=== PATIENT | female | born 1940 | race Caucasian/White ===

== ENCOUNTER 2018-03-16 19:30 | Inpatient (IN) | payer MEDICARE ==
[2018-03-16] MEDS ORDERED: ASPIRIN 81 MG TABLET, CHEWABLE PO ONE (19:31)
[2018-03-16] MEDS ORDERED: NORMAL SALINE 500 ML IV ONE (19:38)
[2018-03-16] MEDS ORDERED: DILTIAZEM HCL INJ 25 MG/5 ML VIAL IV ONE (19:53)
[2018-03-16] MEDS ORDERED: DILTIAZEM HCL/D5W 125 MG/125 ML RTUINJ IV PRN (19:53)
--- NOTE | 2018-03-16 20:00 | ER Document Report ---
ED Cardiac - General Chief Complaint: Palpitations Stated Complaint: RAPID HEART BEAT Time Seen by Provider: 03/16/18 19:38 Notes: The patient is a 76-year-old female, past medical history hypertension, presents with 2 hours of feeling like her heart is racing. EMS was called and she was found to be in new onset A. fib with RVR with heart rates between 170 and 210. She was given 6.25 mg Cardizem 2 IV push and started Cardizem at 10 mg/h with improvement of her heart rate to 110's-120s. Patient denies chest pain, shortness of breath, syncope, nausea, vomiting, fevers, leg swelling, hemoptysis, back pain, blood thinner use, headache or neurologic symptoms. - Related Data Allergies/Adverse Reactions: No Known Drug Allergies Allergy (Verified 03/16/18 20:43) Past Medical History - General Information source: Patient - Social History Smoking Status: Unknown if Ever Smoked Family History: Reviewed & Not Pertinent Review of Systems - Review of Systems Notes: REVIEW OF SYSTEMS: CONSTITUTIONAL: -fevers, -chills EENT: -eye pain, -difficulty swallowing, -nasal congestion CARDIOVASCULAR: -chest pain, -syncope, +palpitations RESPIRATORY: -cough, -SOB GASTROINTESTINAL: -abdominal pain, -nausea, -vomiting, -diarrhea GENITOURINARY: -dysuria, -hematuria MUSCULOSKELETAL: -back pain, -neck pain SKIN: -rash or skin lesions. HEMATOLOGIC: -easy bruising or bleeding. LYMPHATIC: -swollen, enlarged glands. NEUROLOGICAL: -altered mental status or loss of consciousness, -headache, - neurologic symptoms PSYCHIATRIC: -anxiety, -depression. ALL OTHER SYSTEMS REVIEWED AND NEGATIVE. Physical Exam - Vital signs Vitals: Temp Resp BP Pulse Ox 98.6 F 17 161/70 H 98 03/16/18 19:37 03/16/18 19:37 03/16/18 19:37 03/16/18 19:37 - Notes Notes: PHYSICAL EXAMINATION: GENERAL: Well-appearing, well-nourished and in no acute distress. HEAD: Atraumatic, normocephalic. EYES: Pupils equal round and reactive to light, extraocular movements intact, sclera anicteric, conjunctiva are normal. ENT: nares patent, oropharynx clear without exudates. Moist mucous membranes. NECK: Normal range of motion, supple without lymphadenopathy LUNGS: Breath sounds clear to auscultation bilaterally and equal. No wheezes rales or rhonchi. HEART: Tachycardia, irregularly irregular rhythm ABDOMEN: Soft, nontender, normoactive bowel sounds. No guarding, no rebound. No masses appreciated. EXTREMITIES: Normal range of motion, no pitting or edema. No cyanosis. NEUROLOGICAL: Cranial nerves grossly intact. Normal speech, normal gait. Normal sensory and motor exams. PSYCH: Normal mood, normal affect. SKIN: Warm, Dry, normal turgor, no rashes or lesions noted. Course - Re-evaluation Re-evalutation: Pt in new onset A. fib w/ RVR. No history. Diltiazem has helped improve her heart rate to the 80's and her blood pressure is remaining normal. She is asymptomatic, other than feeling intermittent palpitations. Patient's CHAD2- VASC score is 4 and will provide patient with Lovenox. She requires admission for further evaluation and workup of her new onset A. fib RVR and decision about anticoagulation. Her PMD is at [facility]. 03/16/18 21:[address] Zavala (Hospitalist) and she has accepted atient to [facility]. - Vital Signs Vital signs: Temp Pulse Resp BP Pulse Ox 98.6 F 18 134/73 H 98 03/16/18 19:37 03/16/18 20:35 03/16/18 20:35 03/16/18 20:41 - Laboratory Result Diagrams: 03/16/18 20:00 03/16/18 20:00 - Diagnostic Test Radiology reviewed: Image reviewed, Reports reviewed Radiology results interpreted by me: CXR: NAD - EKG Interpretation by Me EKG shows normal: QRS Complexes Rate: Tachycardia Rhythm: A.Fib When compared to previous EKG there are: Previous EKG unavailable Additional EKG results interpreted by me: A fib w/ RVR, no STEMI Critical Care Note - Critical Care Note Total time excluding time spent on procedures (mins): 45 Discharge - Discharge Clinical Impression: Rapid atrial fibrillation Condition: Stable Disposition: ADMITTED INPATIENT Admitting Provider: Hospitalist - [facility] Unit Admitted: [facility] Referrals: TRINIDAD CERON MD [Primary Care Provider] - Follow up as needed
[2018-03-16 20:06] LABS: ABSOLUTE BASOPHILS # (AUTO) 0.1 10^3/uL (0.0-0.2); ABSOLUTE EOSINOPHILS # (AUTO) 0.2 10^3/uL (0.0-0.6); ABSOLUTE LYMPHOCYTES (AUTO) 2.4 10^3/uL (0.5-4.7); ABSOLUTE MONOCYTES (AUTO) 0.6 10^3/uL (0.1-1.4); ABSOLUTE NEUT (AUTO) 6.3 10^3/uL (1.7-8.2); BASOPHILS % (AUTO) 0.9 % (0-2); EOSINOPHILS % (AUTO) 2.6 % (0-6); HEMATOCRIT 41.4 % (36.0-47.0); HEMOGLOBIN 14.2 g/dL (12.0-15.5); LYMPHOCYTES % (AUTO) 25.2 % (13-45); MEAN CORPUSCULAR HEMOGLOBIN 31.4 pg (27.0-33.4); MEAN CORPUSCULAR HGB CONC 34.2 g/dL (32.0-36.0); MEAN CORPUSCULAR VOLUME 92 fl (80-97); MONOCYTES % (AUTO) 6.3 % (3-13); PLATELET COUNT 190 10^3/uL (150-450); RED BLOOD COUNT 4.51 10^6/uL (3.72-5.28); RED CELL DISTRIBUTION WIDTH 12.9 % (11.5-14.0); TOTAL CELLS COUNTED % (AUTO) 100 %; WHITE BLOOD COUNT 9.6 10^3/uL (4.0-10.5)
--- NOTE | 2018-03-16 20:12 | RADIOLOGY REPORT (SQ) ---
EXAM DESCRIPTION: CHEST SINGLE VIEW COMPLETED DATE/TIME: 03/16/2018 7:50 pm REASON FOR STUDY: cp COMPARISON: None. EXAM PARAMETERS: NUMBER OF VIEWS: One view. TECHNIQUE: Single frontal radiographic view of the chest acquired. RADIATION DOSE: NA LIMITATIONS: None. FINDINGS: LUNGS AND PLEURA: The lungs are hyperexpanded. There is no infiltrate or effusion. There is no mass appear MEDIASTINUM AND HILAR STRUCTURES: No masses. Contour normal. HEART AND VASCULAR STRUCTURES: Heart normal in size. Normal vasculature. BONES: No acute findings. HARDWARE: None in the chest. OTHER: No other significant finding. IMPRESSION: Chronic lung changes with no acute cardiopulmonary disease. TECHNICAL DOCUMENTATION: JOB ID: [id number]- All Rights Reserved Reading location - IP/workstation name: [email or web address]
[2018-03-16 20:20] LABS: ALANINE AMINOTRANSFERASE 29 U/L (9-52); ALBUMIN 4.3 g/dL (3.5-5.0); ALKALINE PHOSPHATASE 64 U/L (38-126); ANION GAP 15 (5-19); ASPARTATE AMINO TRANSFERASE 28 U/L (14-36); BILIRUBIN,DIRECT 0.3 mg/dL (0.0-0.4); BILIRUBIN,TOTAL 0.7 mg/dL (0.2-1.3); BLOOD UREA NITROGEN 20 mg/dL (7-20); CALCIUM 9.7 mg/dL (8.4-10.2); CARBON DIOXIDE 22 mmol/L (22-30); CHLORIDE 105 mmol/L (98-107); CREATINE KINASE 97 U/L (30-135); GLUCOSE 108 mg/dL (75-110); POTASSIUM 4.7 mmol/L (3.6-5.0); SODIUM 141.5 mmol/L (137-145)
[2018-03-16 20:31] LABS: CREATINE KINASE MB 1.77 ng/mL (<4.55)
[2018-03-16 20:33] LABS: TROPONIN I < 0.012 ng/mL
[2018-03-16 21:01] LABS: FREE T3 3.85 pg/mL (2.77-5.27); FREE T4 (FREE THYROXINE) 1.28 ng/dL (0.78-2.19)
[2018-03-16 21:15] LABS: THYROID STIMULATING HORMONE 3.11 uIU/mL (0.47-4.68)
[2018-03-16] MEDS: ENOXAPARIN SODIUM INJ 60 MG/0.6 ML DISP.SYRIN SUBCUT SCH (22:21)
[2018-03-16] MEDS ORDERED: NORMAL SALINE 1000 ML 1,000 ML IV PRN (22:26)
[2018-03-16] MEDS ORDERED: PROMETHAZINE HCL INJ 25 MG/1 ML VIAL IV PRN (22:26)
[2018-03-16] MEDS ORDERED: ALBUTEROL SULFATE 0.083% NEB 2.5 MG/3 ML AMPUL NEB PRN (22:26)
[2018-03-16] MEDS ORDERED: ACETAMINOPHEN 325 MG TABLET PO PRN (22:26)
--- NOTE | 2018-03-16 22:38 | EKG REPORT ---
SEVERITY:- ABNORMAL ECG - ATRIAL FIBRILLATION, V-RATE 63-116 : Confirmed by: Tamir Ortega 16-Mar-2018 22:37:54
--- NOTE | 2018-03-16 22:39 | EKG REPORT ---
SEVERITY:- ABNORMAL ECG - ATRIAL FIBRILLATION NONSPECIFIC REPOL ABNORMALITY, DIFFUSE LEADS, ISCHEMIA VS LVH : Confirmed by: Tamir Ortega 16-Mar-2018 22:38:37
--- NOTE | 2018-03-17 02:00 | PDOC H&P ---
History of Present Illness Admission Date/PCP: TRINIDAD CERON MD Patient complains of: Palpitations for an hour and a half. SVTs with HR = 170 210 prior to admission. History of Present Illness: KENDELL VU is a 77 year old female with history of valvular disease was admitted with above-mentioned complaint. According to the patient, she started having palpitations while she was gardening. The episode lasted about an hour and a half before she decided to call EMS. She denied any chest pain, shortness of breath, syncope or any leg swelling. She, however, felt some lightheadedness/dizziness but no focal weakness or numbness. She also denied any fever, chills, abdominal pain, diarrhea or constipation or any urinary symptoms. She never had any similar episodes in the past. Per ED note, the patient's heart rate was reported by EMS to be 170-210. She received 6.25 mg IV Cardizem 2 and was started on Cardizem drip at 10 mg/h with improvement of her heart rate down to 110- 120s. In the ED, her temperature was 98.6, heart rate 113, respiratory rate 17, blood pressure 161/70 with oxygen saturation of 98% on room air. Her WBC was 9.6 and her hemoglobin was 14.2. Her potassium was 4.7. Magnesium pending. Her initial troponin was less than 0.012. ProBNP and TSH pending. A CXR was done which showed hyperinflated lungs. She received therapeutic Lovenox x1. She currently converted to sinus rhythm on Cardizem drip @ 5 mg/hr. Past Medical History Cardiac Medical History: Reports: Other - leaky valves per patient. Past Surgical History Past Surgical History: Reports: Orthopedic Surgery - R knee replacement. B/L feet sxs. Social History Smoking Status: Former Smoker Cigarettes Packs Per Day: 0 - She used to smoke less than a pack a day for about 40 years. She quit more than 20 years ago. Frequency of Alcohol Use: Occasional - wine and whiskey occasionally. Hx Recreational Drug Use: No - Advance Directive Resuscitation Status: Full Code Family History Parental Family History Reviewed: Yes - Mother: Diabetes. Children Family History Reviewed: No Sibling(s) Family History Reviewed.: Yes Medication/Allergy Allergies/Adverse Reactions: No Known Drug Allergies Allergy (Verified 03/16/18 20:43) Review of Systems ROS unobtainable: Other - Pertinent positives and negatives as per HPI. Physical Exam Vital Signs: Temp Pulse Resp BP Pulse Ox 98.6 F 18 134/73 H 98 03/16/18 19:37 03/16/18 20:35 03/16/18 20:35 03/16/18 20:41 Intake & Output 03/15/18 03/16/18 03/17/18 06:59 06:59 06:59 Weight 50 kg General appearance: PRESENT: no acute distress, well-developed Head exam: PRESENT: atraumatic, normocephalic Eye exam: PRESENT: PERRLA Mouth exam: PRESENT: moist, neck supple Neck exam: PRESENT: full ROM. ABSENT: JVD Respiratory exam: PRESENT: crackles, decreased breath sounds. ABSENT: rhonchi, wheezes Cardiovascular exam: PRESENT: RRR, +S1, +S2. ABSENT: systolic murmur Pulses: PRESENT: normal dorsalis pedis pul GI/Abdominal exam: PRESENT: normal bowel sounds, soft. ABSENT: distended, guarding, rebound, tenderness Rectal exam: PRESENT: deferred Extremities exam: ABSENT: pedal edema Musculoskeletal exam: PRESENT: full ROM Neurological exam: PRESENT: alert, altered, awake. ABSENT: motor sensory deficit Skin exam: PRESENT: dry, warm. ABSENT: erythema, rash Results Laboratory Results: 03/16/18 20:00 03/16/18 20:00 03/16/18 03/16/18 03/16/18 20:00 20:00 20:00 WBC 9.6 RBC 4.51 Hgb 14.2 Hct 41.4 MCV 92 MCH 31.4 MCHC 34.2 RDW 12.9 Plt Count 190 Seg Neutrophils % 65.0 Lymphocytes % 25.2 Monocytes % 6.3 Eosinophils % 2.6 Basophils % 0.9 Absolute Neutrophils 6.3 Absolute Lymphocytes 2.4 Absolute Monocytes 0.6 Absolute Eosinophils 0.2 Absolute Basophils 0.1 Sodium 141.5 Potassium 4.7 Chloride 105 Carbon Dioxide 22 Anion Gap 15 BUN 20 Creatinine 0.71 Est GFR ( Amer) > 60 Est GFR (Non-Af Amer) > 60 Glucose 108 Calcium 9.7 Total Bilirubin 0.7 AST 28 ALT 29 Alkaline Phosphatase 64 Total Protein 7.0 Albumin 4.3 TSH 3.11 Free T4 1.28 Free T3 pg/mL 3.85 03/16/18 03/16/18 20:00 20:00 Creatine Kinase 97 CK-MB (CK-2) 1.77 Troponin I < 0.012 EKG Comments: 12 lead EKG: A. fib, ventricular rate 120, axis -60, QTC prolongation, poor R- wave propagation. Repeat 12 lead EKG, A. fib, ventricular rate 90, axis -55, no acute changes. No previous EKG to compare. Impressions: Chest X-Ray 03/16/18 19:31 IMPRESSION: Chronic lung changes with no acute cardiopulmonary disease. Assessment & Plan - Diagnosis (1) Atrial fibrillation with RVR Is this a current diagnosis for this admission?: Yes Plan: New and/or paroxysmal. [id number] Vasc score is at least 3. Will continue to cycle cardiac enzymes and check proBNP, d-dimer and follow-up TSH and echocardiogram. Will also check electrolytes and replace as needed. Will continue Cardizem drip for now and therapeutic Lovenox BID. Will consult case management regarding starting Eliquis vs Coumadin as outpatient depending on cost. (2) Elevated blood pressure reading Is this a current diagnosis for this admission?: Yes Plan: I am not sure if the patient has a hypertension diagnosis but she said that she takes " a small pill for her heart." She is currently on Cardizem drip which we will continue. (3) Valvular disease Is this a current diagnosis for this admission?: Yes Plan: per patient. Will follow-up echocardiogram and adjust medications as needed. - Time Time Spent: 50 to 70 Minutes - Inpatient Certification Based on my medical assessment, after consideration of the patient's comorbidities, presenting symptoms, or acuity I expect that the services needed warrant INPATIENT care.: Yes I certify that my determination is in accordance with my understanding of Medicare's requirements for reasonable and necessary INPATIENT services [42 CFR 412.3e].: Yes
[2018-03-17 05:20] LABS: HEMATOCRIT 39.1 % (36.0-47.0); HEMOGLOBIN 13.3 g/dL (12.0-15.5); MEAN CORPUSCULAR HEMOGLOBIN 31.4 pg (27.0-33.4); MEAN CORPUSCULAR HGB CONC 34.1 g/dL (32.0-36.0); MEAN CORPUSCULAR VOLUME 92 fl (80-97); PLATELET COUNT 182 10^3/uL (150-450); RED BLOOD COUNT 4.24 10^6/uL (3.72-5.28); RED CELL DISTRIBUTION WIDTH 12.8 % (11.5-14.0); WHITE BLOOD COUNT 7.2 10^3/uL (4.0-10.5)
[2018-03-17 05:30] LABS: ANION GAP 12 (5-19); BLOOD UREA NITROGEN 21 mg/dL (7-20); CALCIUM 9.2 mg/dL (8.4-10.2); CARBON DIOXIDE 24 mmol/L (22-30); CHLORIDE 109 mmol/L (98-107); GLUCOSE 80 mg/dL (75-110); POTASSIUM 4.3 mmol/L (3.6-5.0); SODIUM 144.5 mmol/L (137-145)
[2018-03-17] MEDS: DILTIAZEM HCL 180 MG CAPSULE.CR PO SCH (09:33)
[2018-03-17] MEDS: ENOXAPARIN SODIUM INJ 60 MG/0.6 ML DISP.SYRIN SUBCUT SCH (09:33)
--- NOTE | 2018-03-17 16:14 | PDOC PROGRESS REPORT ---
Subjective Progress Note for:: 03/17/18 Subjective:: KENDELL VU is a 77 year old female with a history of valvular disease was admitted 03/16/2018 with A. fib with RVR. Her rate is currently controlled with p.o. Cardizem. Continuous telemetry strips demonstrate the patient's rhythm will flip flop between NSR and AFIB. The patient was seen this morning on rounds. She is resting comfortably in bed eating her breakfast. The patient has no complaints whatsoever. She denies a history of AFIB or ever having to see a doctor for a heart arrhythmia. Reason For Visit: A FIB WITH RVR. Physical Exam Vital Signs: Temp Pulse Resp BP Pulse Ox 97.9 F 67 16 107/44 L 100 03/17/18 12:35 03/17/18 14:00 03/17/18 12:35 03/17/18 12:35 03/17/18 12:35 Intake & Output 03/16/18 03/17/18 03/18/18 06:59 06:59 06:59 Intake Total 78 355 Balance 78 355 Weight 50 kg General appearance: PRESENT: no acute distress, well-developed, well-nourished Head exam: PRESENT: atraumatic, normocephalic Eye exam: PRESENT: conjunctiva pink, EOMI, PERRLA. ABSENT: scleral icterus Ear exam: PRESENT: normal external ear exam Mouth exam: PRESENT: moist, tongue midline Neck exam: ABSENT: carotid bruit, JVD, lymphadenopathy, thyromegaly Respiratory exam: PRESENT: clear to auscultation jennifer, symmetrical, unlabored. ABSENT: rales, rhonchi, wheezes Cardiovascular exam: PRESENT: irregular rhythm, RRR. ABSENT: diastolic murmur, rubs, systolic murmur Pulses: PRESENT: normal radial pulses, normal dorsalis pedis pul Vascular exam: PRESENT: normal capillary refill GI/Abdominal exam: PRESENT: normal bowel sounds, soft. ABSENT: distended, tenderness Rectal exam: PRESENT: deferred Extremities exam: PRESENT: full ROM Musculoskeletal exam: PRESENT: ambulatory, full ROM Neurological exam: PRESENT: alert, awake, oriented to person, oriented to place , oriented to time, oriented to situation Psychiatric exam: PRESENT: appropriate affect, normal mood Skin exam: PRESENT: dry, intact, warm. ABSENT: cyanosis, rash Results Laboratory Results: 03/17/18 04:24 03/17/18 04:24 18 03/17/18 04:24 04:24 WBC 7.2 RBC 4.24 Hgb 13.3 Hct 39.1 MCV 92 MCH 31.4 MCHC 34.1 RDW 12.8 Plt Count 182 Sodium 144.5 Potassium 4.3 Chloride 109 H Carbon Dioxide 24 Anion Gap 12 BUN 21 H Creatinine 0.75 Est GFR ( Amer) > 60 Est GFR (Non-Af Amer) > 60 Glucose 80 Calcium 9.2 Magnesium 2.0 03/16/18 23:20 Troponin I 0.027 Impressions: Chest X-Ray 03/16/18 19:31 IMPRESSION: Chronic lung changes with no acute cardiopulmonary disease. Status: Imported from PACS Assessment & Plan - Diagnosis (1) Rapid atrial fibrillation Is this a current diagnosis for this admission?: Yes Plan: New onset rapid A. fib. Patient denies history of arrhythmia. Initially on Cardizem drip, transitioned to oral Cardizem today. Rate is currently controlled, however, rhythm alternates between atrial fibrillation and normal sinus rhythm MARIANNA-VASC score 3, continue SQ therapeutic Lovenox twice daily We will need to make determination regarding anticoagulation post discharge Echocardiogram pending Troponin<0.012 no longer trending Cardiology consulted, appreciate their recommendations (2) Valvular disease Is this a current diagnosis for this admission?: Yes Plan: Patient reports a history of valvular disease, however she is unsure which valves Echocardiogram pending, adjust medications as needed - Time Time Spent with patient: 15-24 minutes Medications reviewed and adjusted accordingly: Yes Anticipated discharge: Home Within: within 48 hours - Inpatient Certification Based on my medical assessment, after consideration of the patient's comorbidities, presenting symptoms, or acuity I expect that the services needed warrant INPATIENT care.: Yes I certify that my determination is in accordance with my understanding of Medicare's requirements for reasonable and necessary INPATIENT services [42 CFR 412.3e].: Yes Medical Necessity: Risk of Complication if Not Cared For in Hospital - Plan Summary Plan Summary: Ultimately, the plan is to discharge the patient home with close follow-up to tack cutter. She will need to continue p.o. Cardizem post discharge. Additionally, her MARIANNA-VASC score is 3 therefore she will require postdischarge anticoagulation. Appreciate cardiology recommendations.
--- NOTE | 2018-03-17 20:03 | XCELERA REPORT ---
[address] [address] Transthoracic Echocardiogram Report Name: KENDELL VU Age: 77 yrs Gender: Female : 1940 Patient Status: Inpatient Patient Location: [address] [place] [address] Study Date: 03/17/2018 02:17 PM Height: 59 in Weight: 110 lb BSA: 1.4 m2 Procedure: A complete two-dimensional transthoracic echocardiogram was performed (2D, M-mode, spectral and color flow Doppler). The study was technically adequate with some images being suboptimal in quality. Reason For Study: new onset afib with RVR. Ordering Physician: DIEGO PERALTA Performed By: Ann Marie Nicolas Interpretation Summary Left ventricular systolic function is borderline reduced. The Ejection Fraction estimate is 50-55% There is borderline concentric left ventricular hypertrophy. The left ventricle is grossly normal size. LV diastolic function could not be adequately assessed. There is borderline global hypokinesis of the left ventricle. The right ventricular systolic function is normal. The left atrial size is normal. The right atrium is normal in size There is a mild to moderate amount of mitral regurgitation There is no mitral valve stenosis. There is a mild to moderate amount of aortic regurgitation There is no aortic valve stenosis There is a trace to mild amount of tricuspid regurgitation Right ventricular systolic pressure is at the upper limits of normal The aortic root is not well visualized but is probably normal size. The inferior vena cava was not well visualized There is no pericardial effusion. MMode/2D Measurements & Calculations RVDd: 1.2 cm LVIDd: 5.0 cm FS: 27.8 % Ao root diam: 2.8 cm IVSd: 0.92 cm LVIDs: 3.6 cm EDV(Teich): 117.8 ml LVPWd: 0.85 cm ESV(Teich): 54.7 ml Ao root area: 6.1 cm2 EF(Teich): 53.6 % Doppler Measurements & Calculations MV E max naomi: MV dec slope: Ao V2 max: AI max naomi: 89.4 cm/sec 146.8 cm/sec 425.0 cm/sec MV A max naomi: 460.6 cm/sec2 Ao max PG: AI max P.1 cm/sec MV dec time: 8.6 mmHg 72.2 mmHg MV E/A: 1.6 0.19 sec AI dec slope: 252.0 cm/sec2 AI P1/2t: 493.9 msec LV V1 max PG: PA V2 max: PI end-d naomi: TR max naomi: 4.1 mmHg 54.5 cm/sec 104.3 cm/sec 246.7 cm/sec LV V1 max: PA max P.2 mmHg TR max P.0 cm/sec 24.4 mmHg Left Ventricle The left ventricle is grossly normal size. There is borderline concentric left ventricular hypertrophy. Left ventricular systolic function is borderline reduced. The Ejection Fraction estimate is 50-55%. LV diastolic function could not be adequately assessed. There is borderline global hypokinesis of the left ventricle. Right Ventricle The right ventricle is grossly normal size. There is normal right ventricular wall thickness. The right ventricular systolic function is normal. Atria The right atrium is normal in size. The left atrial size is normal. Interarterial septum not well visualized and not well dopplered. Cannot comment on ASD/PFO presence. Mitral Valve The mitral valve leaflets are sclerotic and show some degree of functional abnormality. There is no mitral valve stenosis. There is a mild to moderate amount of mitral regurgitation. Aortic Valve The aortic valve is grossly normal. There is no aortic valve stenosis. There is a mild to moderate amount of aortic regurgitation. Tricuspid Valve The tricuspid valve is not well visualized, but is grossly normal. There is no tricuspid stenosis. There is a trace to mild amount of tricuspid regurgitation. Right ventricular systolic pressure is at the upper limits of normal. Pulmonic Valve The pulmonic valve is not well visualized. Great Vessels The aortic root is not well visualized but is probably normal size. The inferior vena cava was not well visualized. Effusions There is no pericardial effusion. : DIEGO PERALTA > Tamir Ortega
--- NOTE | 2018-03-17 20:33 | Progress Note ---
Provider Note Provider Note: Patient was seen in the morning. She had converted to sinus rhythm. Patient has new onset atrial fibrillation. Patient does have some minor ST-T wave changes. Patient has been recommended chronic anticoagulation. Will schedule patient for a 2D echocardiogram. This was pending at the time when this patient was seen. Will also schedule patient for a nuclear stress test. Patient is agreeable.
[2018-03-17] MEDS ORDERED: NORMAL SALINE 1000 ML 1,000 ML IV PRN (20:41)
[2018-03-17] MEDS ORDERED: PROMETHAZINE HCL INJ 25 MG/1 ML VIAL IV PRN (20:47)
[2018-03-17] MEDS ORDERED: ALBUTEROL SULFATE 0.083% NEB 2.5 MG/3 ML AMPUL NEB PRN (21:00)
[2018-03-17] MEDS ORDERED: ENOXAPARIN SODIUM INJ 60 MG/0.6 ML DISP.SYRIN SUBCUT SCH ×2 (22:00)
--- NOTE | 2018-03-17 23:17 | EKG REPORT ---
SEVERITY:- ABNORMAL ECG - SINUS RHYTHM NONSPECIFIC T ABNORMALITIES, DIFFUSE LEADS : Confirmed by: Tamir Ortega 17-Mar-2018 23:16:52
[2018-03-18 05:16] LABS: HEMATOCRIT 38.2 % (36.0-47.0); HEMOGLOBIN 13.1 g/dL (12.0-15.5); MEAN CORPUSCULAR HEMOGLOBIN 31.7 pg (27.0-33.4); MEAN CORPUSCULAR HGB CONC 34.4 g/dL (32.0-36.0); MEAN CORPUSCULAR VOLUME 92 fl (80-97); PLATELET COUNT 175 10^3/uL (150-450); RED BLOOD COUNT 4.14 10^6/uL (3.72-5.28); RED CELL DISTRIBUTION WIDTH 13.2 % (11.5-14.0); WHITE BLOOD COUNT 6.5 10^3/uL (4.0-10.5)
[2018-03-18 08:02] LABS: APPEARANCE,URINE CLEAR; BILIRUBIN,URINE NEGATIVE (NEGATIVE); COLOR,URINE STRAW; GLUCOSE, URINE NEGATIVE (NEGATIVE); KETONES,URINE NEGATIVE (NEGATIVE); LEUKOCYTE ESTERASE,URINE NEGATIVE (NEGATIVE); NITRITE,URINE NEGATIVE (NEGATIVE); PROTEIN,URINE NEGATIVE (NEGATIVE); URINE SPECIFIC GRAVITY 1.006; UROBILINOGEN,URINE NEGATIVE mg/dL (<2.0)
[2018-03-18] MEDS: DILTIAZEM HCL 180 MG CAPSULE.CR PO SCH (10:27)
[2018-03-18] MEDS ORDERED: AMINOPHYLLINE INJ/PF 250 MG/10 ML SDV IV ONE (10:53)
[2018-03-18] MEDS ORDERED: REGADENOSON INJ 0.4 MG/5 ML DISP.SYRIN IV ONE (10:53)
[2018-03-18 12:06] VITALS: BP 107/82
--- NOTE | 2018-03-18 12:33 | DRAGON STRESS TEST REPORT ---
INTRAVENOUS LEXISCAN CARDIOLITE STRESS TEST USING SINGLE PHOTON EMMISION COMPUTERIZED TOMOGRAPHIC. DATE OF PROCEDURE: March 18, 2018, INDICATION : Atrial fibrillation, abnormal EKG CARDIAC RISK FACTORS: Atrial fibrillation RESTING EKG: Sinus rhythm, minor nonspecific ST-T wave changes noted STRESS EKG: No significant ST segment changes noted with LexiScan bolus REASON FOR TERMINATION: Protocol. PROCEDURE REPORT: Baseline heart rate 76 beats per minute with blood pressure of 125/51. Patient had no significant complaints. Patient was bolused with Lexiscan 0.4 mg intravenously followed by saline bolus. Heart rate at 2 minutes post bolus 115 with a blood pressure of 153/39. 3 minutes post bolus heart rate 101 with blood pressure of 145/38. No significant EKG changes were noted. Patient had no significant complaints during the procedure or postprocedure. Patient injected with Aminophyllin 75 mg at 3 minutes or later after Lexiscan bolus. CONCLUSIONS: Normal EKG and hemodynamic response to IV LexiScan. NUCLEAR DATA: At rest the patient was given 9.29 millicuries of technetium 99 sestamibi injected intravenously. As per protocol rest gated SPECT images were obtained. On day of stress test, the patient was given intravenous LexiScan at a dose of 0.4 mg in 5 mL intravenously, followed by flush with normal saline. Subsequently the stress dose of 32.8 millicuries of technetium 99 sestamibi was injected intravenously. As per protocol stress gated images were obtained. NUCLEAR INTERPRETATION: Both raw and processed data were used for interpretation. Visual, qualitative, computer-generated quantitative data was used. There was good myocardial uptake of technetium compound. Motion artifact and soft tissue attenuations were noted. Increased visceral uptake was noted. Mild decreased uptake noted in the inferior wall in the stress images as compared to rest images and felt to be related to diaphragmatic attenuation and subtraction artifact from visceral uptake. No corresponding regional wall motion abnormalities. Therefore no definitive areas of transient perfusion defect noted, No definitive areas of fixed perfusion defect or scars noted. EKG gated imaging showed LV EF at 57 %, rest and stress gated EF similar visually. T. I D. ratio was 1.22. Lung heart ratio noted to be within normal limits 0.36. No significant extracardiac and abnormal radiotracer activities were noted. RV free wall uptake was noted to be WNL. IMPRESSION: Also refer to comments under nuclear interpretation. Also test results needs to be interpreted in the context of pretest probability. 1. No definitive areas of transient perfusion defect noted. 2. There is no definitive scintigraphic evidence of myocardial infarction/scar. 3. EKG gated imaging shows left ventricular ejection fraction of approx. 57 %. 4. Clinical correlation requested as occasionally single vessel disease or balanced ischemia could be missed. In approximately 10% of the cases Lexiscan may not cause adequate vasodilatory stress. RECOMMENDATIONS: Aggressive risk factor modification and medical management. Further evaluation may be needed if continued symptoms or other high risk indicators are noted on clinical evaluation. Close cardiology follow-up is also recommended. Clinical correlation with echocardiogram derived ejection fraction. Inability to exercise by itself can lead to increased cardiovascular event risks. Consider cardiology consultation and or follow-up if clinically indicated. I am available for cardiology evaluation and consultation if requested by the dealer sales manager, unless patient already has a cork mixer. JONE
--- NOTE | 2018-03-18 13:24 | PDOC PROGRESS REPORT ---
Subjective Progress Note for:: 03/18/18 Subjective:: Patient seems to be doing better with gradual improvement. Pt is denying any chest arm or neck discomfort. Patient denying any PND, orthopnea. Patient denied any sustained palpitations, dizziness, syncope, near syncope. Patient denying any fever chills. Patient denying any other significant discomfort. Patient is maintaining sinus rhythm. Nuclear stress test risk benefits were discussed. Review of systems: Rest review of systems negative. Medications: Medications have been reviewed. Reason For Visit: A FIB WITH RVR. Physical Exam Vital Signs: Temp Pulse Resp BP Pulse Ox 97.4 F 73 17 107/82 100 03/18/18 11:30 03/18/18 11:30 03/18/18 11:30 03/18/18 11:30 03/18/18 11:30 Intake & Output 03/17/18 03/18/18 03/19/18 06:59 06:59 06:59 Intake Total 78 2442 900 Output Total 1000 Balance 78 2442 -100 Weight 50 kg Exam: GENERAL: well-nourished and in no acute distress. Alert and oriented x3 HEAD: Atraumatic, normocephalic. EYES: Pupils equal round and reactive to light, extraocular movements intact, sclera anicteric, conjunctiva are normal. ENT: TMs normal, nares patent, oropharynx clear without exudates. Moist mucous membranes. No oral ulcerations or bleeding gums noted NECK: supple without lymphadenopathy. Trachea is central. No cervical or axillary lymphadenopathy noted. Carotids are 2+, JVD WNL LUNGS: Respiration seems nonlabored, no significant accessory muscle action noted. Breath sounds clear to auscultation bilaterally and equal noted. No wheezes rales or rhonchi noted. No significant dullness noted on percussion. CHEST: Palpation of the chest wall shows no significant chest wall tenderness. HEART: [employer], No PSH, 1/6 JOEL aortic area, 1/6 horn systolic murmur mitral area, no rubs, no gallops. ABDOMEN: Soft, no significant tenderness appreciated, normoactive bowel sounds. No guarding, no rebound. No rigidity noted . No masses appreciated. EXTREMITIES: Pedal pulses are 1-2+, no calf tenderness noted. No clubbing or cyanosis. negative pedal edema noted NEUROLOGICAL: Focused neurological exam showed no significant neurologic deficit. Normal speech, no focal weakness appreciated. PSYCH: Normal mood, normal affect. Judgment and insight within normal limits. SKIN: No significant ecchymosis, skin is noted to be warm. MUSCULOSKELETAL EXAM: No significant acute joint swelling noted. Results Laboratory Results: 03/18/18 04:49 03/17/18 04:24 03/18/18 03/18/18 03/18/18 04:49 07:45 11:30 WBC 6.5 RBC 4.14 Hgb 13.1 Hct 38.2 MCV 92 MCH 31.7 MCHC 34.4 RDW 13.2 Plt Count 175 Urine Color STRAW Urine Appearance CLEAR Urine pH 6.0 Ur Specific [place] 1.006 Urine Protein NEGATIVE Urine Glucose (UA) NEGATIVE Urine Ketones NEGATIVE Urine Blood SMALL H Urine Nitrite NEGATIVE Ur Leukocyte Esterase NEGATIVE Urine WBC (Auto) 1 Urine RBC (Auto) 1 Stool Occult Blood NEGATIVE 03/16/18 23:20 Troponin I 0.027 EKG Comments: Telemetry strips shows sinus rhythm without any sustained tachycardia or bradycardia. Impressions: Chest X-Ray 03/16/18 19:31 IMPRESSION: Chronic lung changes with no acute cardiopulmonary disease. Assessment & Plan - Diagnosis (1) Atrial fibrillation with RVR Is this a current diagnosis for this admission?: Yes (2) Elevated blood pressure reading Is this a current diagnosis for this admission?: Yes (3) Valvular disease Is this a current diagnosis for this admission?: Yes - Notes Notes: Atrial fibrillation with RVR: Patient has converted spontaneously to sinus rhythm. So far has maintained sinus rhythm. Recommend rate control with Cardizem/beta-brenda. Patient can follow-up with me. Might benefit from a event monitor as an outpatient. Patient is less than 60 kg in weight and is 77 , adequate dose for chronic anticoagulation will be Eliquis 2.5 mg p.o. twice daily. Elevated blood pressure reading: Currently blood pressure is well controlled. Valvular heart disease: Patient gives a history of this. 2D echocardiogram shows mild to moderate mitral regurgitation, mild to moderate aortic incompetence. LVEF at lower limit of normal to borderline reduced. Nuclear stress test results were reviewed with the patient. No definitive areas of pharmacologic stress-induced ischemia noted or fixed defect noted. EKG gated imaging shows normal LVEF. - Time Time with patient: Greater than 35 minutes - Patient was seen multiple times. Total time exceeds 40 minutes. In the morning nuclear stress test procedure, risks benefits, alternatives were discussed. Patient seen during the stress test. Patient also seen after stress test when results were discussed with the patient in detail. Patient's questions were answered. Nuclear stress test results were discussed with the patient. Patient was informed that no definitive evidence of pharmacologic stress-induced ischemia noted. No definite fixed defects were noted. Patient informed that occasionally significant single vessel disease or balanced ischemia could be missed. However based on the current study results, would recommend aggressive risk factor modification and medical therapy. It may also be worthwhile to consider evaluation or empiric management of other causes of chest pain. Should no other cause be found and if persistent in having chest pain, then cardiac catheterization should be considered. Right now, recommendations are for aggressive risk factor modification and medical management. CODE STATUS was discussed, patient remains full code. Surrogate decision-maker patient's son. Multiple medical problems were addressed. Patient informed that she can follow- up with me on discharge. Medications reviewed and adjusted accordingly: Yes
[2018-03-18] MEDS ORDERED: APIXABAN 2.5 MG TABLET PO SCH (18:00)
[2018-03-18] MEDS ORDERED: ENOXAPARIN SODIUM INJ 60 MG/0.6 ML DISP.SYRIN SUBCUT SCH (22:00)
--- NOTE | 2018-03-19 17:34 | PDOC CONSULTATION ---
Consultation Consult Date: 03/17/18 Attending physician:: YVONNE GARNER Consult reason:: Atrial fibrillation History of Present Illness Admission Date/PCP: 03/16/18 22:26 TRINIDAD CERON MD Patient complains of: Palpitations and shortness of breath as well as fatigue History of Present Illness: KENDELL VU is a 77 year old female with history of valvular disease was admitted with above-mentioned complaint. According to the patient, she started having palpitations while she was gardening. The episode lasted about an hour and a half before she decided to call EMS. She denied any chest pain, shortness of breath, syncope or any leg swelling. She, however, felt some lightheadedness/dizziness but no focal weakness or numbness. She also denied any fever, chills, abdominal pain, diarrhea or constipation or any urinary symptoms. She never had any similar episodes in the past. Per ED note, the patient's heart rate was reported by EMS to be 170-210. She received 6.25 mg IV Cardizem 2 and was started on Cardizem drip at 10 mg/h with improvement of her heart rate down to 110- 120s. In the ED, her temperature was 98.6, heart rate 113, respiratory rate 17, blood pressure 161/70 with oxygen saturation of 98% on room air. Her WBC was 9.6 and her hemoglobin was 14.2. Her potassium was 4.7. Magnesium pending. Her initial troponin was less than 0.012. ProBNP and TSH pending. A CXR was done which showed hyperinflated lungs. She received therapeutic Lovenox x1. She currently converted to sinus rhythm on Cardizem drip @ 5 mg/hr. Patient denied any prior history of palpitations, strokes, mini strokes, blood clots in the legs are in the lungs. Patient does give history of i hypertension and currently on medication for it.. Patient denied any history of myocardial infarction, angina or CHF. Past Medical History Cardiac Medical History: Reports: Other - leaky valves per patient. Psychiatric Medical History: Denies: Depression Past Surgical History Past Surgical History: Reports: Orthopedic Surgery - R knee replacement. B/L feet sxs. Social History Information Source: Patient Smoking Status: Former Smoker Cigarettes Packs Per Day: 0 - She used to smoke less than a pack a day for about 40 years. She quit more than 20 years ago. Number of Years Smokin Last Time Smoked: 1963 Frequency of Alcohol Use: Occasional Hx Recreational Drug Use: No Drugs: None Hx Prescription Drug Abuse: No - Advance Directive Resuscitation Status: Full Code Surrogate healthcare decision maker:: Patient's children at the surrogate decision-maker Family History Family History: Hypertension Parental Family History Reviewed: Yes Children Family History Reviewed: Yes Sibling(s) Family History Reviewed.: Yes Medication/Allergy Home Medications: Benazepril HCl [Lotensin 5 mg Tablet] 5 mg PO DAILY 03/17/18 Loratadine [Claritin 10 mg Tablet] 10 mg PO DAILY 03/17/18 Apixaban [Eliquis 2.5 mg Tablet] 2.5 mg PO BID 2 Days #60 tablet 03/18/18 Diltiazem HCl [Cardizem Cd 180 mg Capsule] 180 mg PO DAILY #30 capsule.cr Allergies/Adverse Reactions: No Known Drug Allergies Allergy (Verified 03/16/18 20:43) Review of Systems Review of Systems: Please see history of present illness and past medical history as wall. Constitutional: No fever or chills reported. Head : No recent chronic headaches, recent head injury. Eyes: No recent eye pain, diplopia, redness, discharge, acute visual changes. Ears: No recent chronic ear pain, acute hearing loss, ear discharge. Oral cavity: No recent ulcerations, bleeding, oral cavity discomfort. Neck: No recent acute neck pain reported. Hematologic: No recent easy bruising or bleeding. Lymphatic: No recent lymph node enlargement reported. Cardiovascular system review: See history of present illness. Respiratory system review: No hemoptysis or blood clots in the lungs reported. Mild Shortness of breath on exertion Gastrointestinal system review: Negative for any recent acute hematemesis, melena. Genitourinary system review: No recent acute or chronic hematuria, flank pain, UTI etc. reported. Skin system review: Negative for any recent abnormal bruising, no rash, no pruritus reported. Neurologic: No prior history of strokes, mini strokes, seizure disorder. Psychologic: No history of major psychosis or major depression reported. Musculoskeletal: Minor aches and pains reported. No acute joint swelling reported. Endocrine: No recent polyuria, polydipsia, recent heat or cold intolerance. Physical Exam Vital Signs: Temp Pulse Resp BP Pulse Ox 97.8 F 64 17 102/37 L 98 03/17/18 15:27 03/17/18 20:09 03/17/18 15:27 03/17/18 15:27 03/17/18 16:00 Intake & Output 03/16/18 03/17/18 03/18/18 06:59 06:59 06:59 Intake Total 78 1429 Balance 78 1429 Weight 50 kg Exam: GENERAL: well-nourished and in no acute distress. Alert and oriented x3 HEAD: Atraumatic, normocephalic. EYES: Pupils equal round and reactive to light, extraocular movements intact, sclera anicteric, conjunctiva are normal. ENT: TMs normal, nares patent, oropharynx clear without exudates. Moist mucous membranes. No oral ulcerations or bleeding gums noted NECK: supple without lymphadenopathy. Trachea is central. No cervical or axillary lymphadenopathy noted. Carotids are 2+, JVD WNL LUNGS: Respiration seems nonlabored, no significant accessory muscle action noted. Breath sounds clear to auscultation bilaterally and equal noted. No wheezes rales or rhonchi noted. No significant dullness noted on percussion. CHEST: Palpation of the chest wall shows no significant chest wall tenderness. 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 ABDOMEN: Soft, no significant tenderness appreciated, normoactive bowel sounds. No guarding, no rebound. No rigidity noted . No masses appreciated. EXTREMITIES: Pedal pulses are 1-2+, no calf tenderness noted. No clubbing or cyanosis. negative pedal edema noted NEUROLOGICAL: Focused neurological exam showed no significant neurologic deficit. Normal speech, no focal weakness appreciated. PSYCH: Normal mood, normal affect. Judgment and insight within normal limits. SKIN: No significant ecchymosis, skin is noted to be warm. MUSCULOSKELETAL EXAM: No significant acute joint swelling noted. Results Laboratory Results: 03/17/18 04:24 03/17/18 04:24 03/17/18 03/17/18 04:24 04:24 WBC 7.2 RBC 4.24 Hgb 13.3 Hct 39.1 MCV 92 MCH 31.4 MCHC 34.1 RDW 12.8 Plt Count 182 Sodium 144.5 Potassium 4.3 Chloride 109 H Carbon Dioxide 24 Anion Gap 12 BUN 21 H Creatinine 0.75 Est GFR ( Amer) > 60 Est GFR (Non-Af Amer) > 60 Glucose 80 Calcium 9.2 Magnesium 2.0 03/16/18 23:20 Troponin I 0.027 EKG Comments: Shows atrial fibrillation with minor nonspecific ST-T changes. Impressions: Chest X-Ray 03/16/18 19:31 IMPRESSION: Chronic lung changes with no acute cardiopulmonary disease. Assessment & Plan - Diagnosis (1) Atrial fibrillation with RVR Is this a current diagnosis for this admission?: Yes (2) Valvular disease Is this a current diagnosis for this admission?: Yes (3) Hypertension Qualifiers: Hypertension type: essential hypertension Qualified Code(s): I10 - Essential (primary) hypertension Is this a current diagnosis for this admission?: Yes - Notes Notes: Atrial fibrillation with RVR: Patient has converted spontaneously to sinus rhythm. So far has maintained sinus rhythm. Recommend rate control with Cardizem/beta-brenda. Patient can follow-up with me. Might benefit from a event monitor as an outpatient. Patient is less than 60 kg in weight and is 79 , adequate dose for chronic anticoagulation will be Eliquis 2.5 mg p.o. twice daily. Can switch patient to p.o. dose of Cardizem. Based on [id number] core , patient is a candidate for chronic anticoagulation. Hypertension: Currently blood pressure is well controlled. Valvular heart disease: Patient gives a history of this. In view of atrial fibrillation with rapid ventricular response, will schedule patient for a 2D echocardiogram. New onset atrial fibrillation: Will consider scheduling patient for a nuclear stress test. This will be discussed. - Time Time Spent: 30 to 50 Minutes - CODE STATUS was discussed, patient remains full code. Surrogate decision-maker patient's children. Multiple medical problems were addressed. More than 50% of the time spent coordinating care, discussing management plans with involved caregivers. Management plans discussed with involved personnels. Medical decision making was of moderate to high complexity , patient's has multiple comorbidities. Medications reviewed and adjusted accordingly: Yes
--- NOTE | 2018-03-31 12:51 | PDOC DISCHARGE SUMMARY ---
General - Admit/Disc Date/PCP Admission Date/Primary Care Provider: 03/16/18 22:26 TRINIDAD CERON MD Discharge Date: 03/18/18 - Discharge Diagnosis (1) Rapid atrial fibrillation Is this a current diagnosis for this admission?: Yes Summary: New onset rapid A. fib. Patient denies history of arrhythmia. Initially on Cardizem drip, transitioned to oral Cardizem today. Continue post discharge Rate is currently controlled, however, rhythm alternates between atrial fibrillation and normal sinus rhythm MARIANNA-VASC score 3, SQ therapeutic Lovenox twice daily while inpatient. Placed on PO eliquis post discharge Echocardiogram shows LVEF 50-55%, mild concentric LVH, mitral valve sclerosis and some degree of functional abnormality Troponin<0.012 (2) Valvular disease Is this a current diagnosis for this admission?: Yes Summary: Patient reports a history of valvular disease, however she is unsure which valves Echocardiogram pending, shows mitral valve sclerosis and mild functional abnormality - Additional Information Resuscitation Status: Full Code Discharge Diet: Cardiac Discharge Activity: Activity As Tolerated Prescriptions: Apixaban [Eliquis 2.5 mg Tablet] 2.5 mg PO BID 2 Days #60 tablet Diltiazem HCl [Cardizem Cd 180 mg Capsule] 180 mg PO DAILY #30 capsule.cr Home Medications: Benazepril HCl [Lotensin 5 mg Tablet] 5 mg PO DAILY 03/17/18 Loratadine [Claritin 10 mg Tablet] 10 mg PO DAILY 03/17/18 Apixaban [Eliquis 2.5 mg Tablet] 2.5 mg PO BID 2 Days #60 tablet 03/18/18 Diltiazem HCl [Cardizem Cd 180 mg Capsule] 180 mg PO DAILY #30 capsule.cr History of Present Illness History of Present Illness: KENDELL VU is a 77 year old female with history of valvular disease was admitted with above-mentioned complaint. According to the patient, she started having palpitations while she was gardening. The episode lasted about an hour and a half before she decided to call EMS. She denied any chest pain, shortness of breath, syncope or any leg swelling. She, however, felt some lightheadedness/dizziness but no focal weakness or numbness. She also denied any fever, chills, abdominal pain, diarrhea or constipation or any urinary symptoms. She never had any similar episodes in the past. Per ED note, the patient's heart rate was reported by EMS to be 170-210. She received 6.25 mg IV Cardizem 2 and was started on Cardizem drip at 10 mg/h with improvement of her heart rate down to 110- 120s. In the ED, her temperature was 98.6, heart rate 113, respiratory rate 17, blood pressure 161/70 with oxygen saturation of 98% on room air. Her WBC was 9.6 and her hemoglobin was 14.2. Her potassium was 4.7. Magnesium pending. Her initial troponin was less than 0.012. ProBNP and TSH pending. A CXR was done which showed hyperinflated lungs. She received therapeutic Lovenox x1. She currently converted to sinus rhythm on Cardizem drip @ 5 mg/hr. Hospital Course Hospital Course: as above Physical Exam Vital Signs: Temp Pulse Resp BP Pulse Ox 97.4 F 69 17 107/82 100 03/18/18 15:11 03/18/18 15:11 03/18/18 15:11 03/18/18 11:30 03/18/18 15:11 Results Laboratory Results: 03/18/18 04:49 03/17/18 04:24 03/16/18 23:20 Troponin I 0.027 Impressions: Chest X-Ray 03/16/18 19:31 IMPRESSION: Chronic lung changes with no acute cardiopulmonary disease. Status: Imported from PACS Qualifiers - * PATIENT BEING DISCHARGED WITH ANY OF THE FOLLOWING DIAGNOSIS: No Plan Discharge Plan: Discharged home on PO cardizem and eliquis. Will need close follow up to cardiology. Time Spent: Less than 30 Minutes
== END 2018-03-18 15:57 | disposition home or self-care (01) | DRG 309 ==
LOC: ER 19:30 → EH 22:26 → 3W 03-17 03:30
PROVIDERS: ADMIT Internal Medicine Geriatric Medicine; ATTEND Internal Medicine Geriatric Medicine
PROC: 3E0F73Z Introduction of Anti-inflammatory into Respiratory Tract, Via Natural or Artificial Opening (ICD-10-PCS; principal; 2018-03-17)
DX: I48.91 Unspecified atrial fibrillation (principal); I38 Endocarditis, valve unspecified; I10 Essential (primary) hypertension; Z96.651 Presence of right artificial knee joint; Z87.891 Personal history of nicotine dependence; Z82.49 Family history of ischemic heart disease and other diseases of the circulatory system; Z83.3 Family history of diabetes mellitus; Z79.899 Other long term (current) drug therapy
CPT/HCPCS: 36415; 71045; 78452; 80048; 80053; 81001; 82272; 82550; 82553; 83735; 83880; 84439; 84443; 84481; 84484; 85025; 85027; 85379; 93005; 93010; 93017; 93306; 96372; 96374; 99291; A9500; J0280; J1650; J2785; J3490; J7030; Q9969

== ENCOUNTER 2019-01-16 17:54 | Emergency (ER) | payer MEDICARE ==
[2019-01-16 21:06] LABS: ABSOLUTE BASOPHILS # (AUTO) 0.1 10^3/uL (0.0-0.2); ABSOLUTE EOSINOPHILS # (AUTO) 0.3 10^3/uL (0.0-0.6); ABSOLUTE LYMPHOCYTES (AUTO) 3.5 10^3/uL (0.5-4.7); ABSOLUTE MONOCYTES (AUTO) 0.8 10^3/uL (0.1-1.4); ABSOLUTE NEUT (AUTO) 3.5 10^3/uL (1.7-8.2); EOSINOPHILS % (AUTO) 4.2 % (0-6); HEMATOCRIT 43.3 % (36.0-47.0); LYMPHOCYTES % (AUTO) 43.1 % (13-45); MEAN CORPUSCULAR HEMOGLOBIN 31.8 pg (27.0-33.4); MEAN CORPUSCULAR HGB CONC 34.7 g/dL (32.0-36.0); MEAN CORPUSCULAR VOLUME 92 fl (80-97); MONOCYTES % (AUTO) 9.2 % (3-13); PLATELET COUNT 170 10^3/uL (150-450); RED BLOOD COUNT 4.72 10^6/uL (3.72-5.28); RED CELL DISTRIBUTION WIDTH 12.8 % (11.5-14.0); SEGMENTED NEUTROPHILS % (AUTO) 42.5 % (42-78); TOTAL CELLS COUNTED % (AUTO) 100 %; WHITE BLOOD COUNT 8.1 10^3/uL (4.0-10.5)
[2019-01-16 21:19] LABS: ALANINE AMINOTRANSFERASE 29 U/L (9-52); ALBUMIN 4.7 g/dL (3.5-5.0); ALKALINE PHOSPHATASE 89 U/L (38-126); ANION GAP 8 (5-19); ASPARTATE AMINO TRANSFERASE 23 U/L (14-36); BILIRUBIN,TOTAL 0.4 mg/dL (0.2-1.3); BLOOD UREA NITROGEN 22 mg/dL (7-20); CALCIUM 9.9 mg/dL (8.4-10.2); CARBON DIOXIDE 25 mmol/L (22-30); CHLORIDE 109 mmol/L (98-107); GLUCOSE 97 mg/dL (75-110); POTASSIUM 4.4 mmol/L (3.6-5.0); SODIUM 142.3 mmol/L (137-145); TOTAL PROTEIN 7.1 g/dL (6.3-8.2)
--- NOTE | 2019-01-16 21:22 | RADIOLOGY REPORT (SQ) ---
EXAM DESCRIPTION: XR CHEST 2 VIEWS COMPLETED DATE/TME: 01/16/2019 20:53 CLINICAL HISTORY: 78 years, Female, sob COMPARISON: 03/16/2018 chest NUMBER OF VIEWS: 2 TECHNIQUE: Frontal and lateral views of the chest LIMITATIONS: None. FINDINGS: The heart size is normal. Atheromatous change thoracic ureter. Osteopenia. Underlying COPD. Calcified granuloma right lung apex. Lungs are otherwise clear. No pneumothorax. IMPRESSION: COPD. No acute cardiopulmonary process copyright 2010 [employer]- All Rights Reserved
[2019-01-16 22:13] LABS: A TYPE INFLUENZA AG NEGATIVE (NEGATIVE); B INFLUENZA AG NEGATIVE (NEGATIVE)
[2019-01-16] MEDS ORDERED: ALBUTEROL SULFATE 0.083% NEB 2.5 MG/3 ML AMPUL NEB ONE (23:08)
[2019-01-16] MEDS ORDERED: PREDNISONE 20 MG TABLET PO ONE (23:08)
[2019-01-17] MEDS ORDERED: CETIRIZINE 10 MG TABLET PO ONE (01:05)
--- NOTE | 2019-01-17 01:20 | ER Document Report ---
ED General - General Chief Complaint: Breathing Difficulty Stated Complaint: SHORTNESS OF BREATH Time Seen by Provider: 01/16/19 20:52 Primary Care Provider: ANN MARIE RENTERIA PA-C [Primary Care Provider] - Follow up as needed Notes: Patient is an 78-year-old female presents to the emergency department for generalized cough, congestion for the past 5 days. Patient is denying any fever. Patient is denying any nausea, vomiting, diarrhea. Patient is denying any chest pain or shortness of breath. Patient states at times she feels as though she coughs and something gets stuck in her throat. Patient is denying an y choking episodes. Patient states she did present to her primary care provider 2 days ago who told her that it was most likely allergies in nature. Patient states she tried [id number] Claritin but states that is not helping. Past medical history: Atrial fibrillation Medications: Patient currently does not know the names of her medicines Allergies: None TRAVEL OUTSIDE OF THE [place] IN LAST 30 DAYS: No - Related Data Allergies/Adverse Reactions: No Known Drug Allergies Allergy (Verified 03/16/18 20:43) Past Medical History - General Information source: Patient - Social History Smoking Status: Former Smoker Family History: Hypertension Renal/ Medical History: Denies: Hx Peritoneal Dialysis Psychiatric Medical History: Denies: Hx Depression Past Surgical History: Reports: Hx Orthopedic Surgery - R knee replacement. B/L feet sxs. Review of Systems - Review of Systems Constitutional: See HPI EENT: See HPI Cardiovascular: See HPI Respiratory: See HPI Gastrointestinal: See HPI Genitourinary: No symptoms reported Female Genitourinary: No symptoms reported Musculoskeletal: No symptoms reported Skin: No symptoms reported Hematologic/Lymphatic: No symptoms reported Neurological/Psychological: No symptoms reported Physical Exam - Vital signs Vitals: Temp Pulse Resp BP Pulse Ox 99.3 F 78 18 151/53 H 99 01/16/19 18:54 01/16/19 18:54 01/16/19 18:54 01/16/19 18:54 01/16/19 18:54 - Notes Notes: GENERAL: Alert, interacts well. No acute distress. HEAD: Normocephalic, atraumatic. no frontal or maxillary sinus tenderness noted EYES: Pupils equal, round, and reactive to light. Extraocular movements intact. ENT: Oral mucosa moist, tongue midline. Nares patent, TM's intact, Nonerythematous, nonbulging bilaterally. Pharynx within normal limits, no palatal petechiae noted tonsils +1 bilaterally. NECK: Full range of motion. Supple. Trachea midline. No lymphadenopathy appreciated LUNGS: Clear to auscultation bilaterally, no wheezes, rales, or rhonchi. No respiratory distress. HEART: Regular rate and rhythm. No murmur ABDOMEN: Soft, non-tender. Non-distended. Bowel sounds present in all 4 quadrants. EXTREMITIES: Moves all 4 extremities spontaneously. No edema, normal radial and dorsalis pedis pulses bilaterally. No cyanosis. BACK: no cervical, thoracic, lumbar midline tenderness. No saddle anesthesia, normal distal neurovascular exam. NEUROLOGICAL: Alert and oriented x3. Normal speech. cranial nerves II through XII grossly intact. PSYCH: Normal affect, normal mood. SKIN: Warm, dry, normal turgor. No rashes or lesions noted. Course - Re-evaluation Re-evalutation: Patient's labs show no signs of leukocytosis, no signs of anemia, patient's influenza testing was negative. Patient's chest x-ray did show no signs of COPD. Patient states she was a former smoker but denies any history of albuterol use or being told that she has bronchitis or emphysema. Discussed with her at length that this cough, congestion feeling in her throat is most likely due to bronchitis. Discussed viral diagnosis and potential need for albuterol treatments or steroids. Patient voices she wishes to trial an albuterol treatment in the emergency room. States her son used albuterol while he was smoking. Patient was given a 2.5 mg albuterol treatment. According to nursing staff patient got very anxious and tachypneic. I went in to speak with the patient and she is in tears. States that her heart is racing. Patient's heart rate was noted to be 92. Discussed at length with patient this is likely the albuterol. Patient denies any chest pain. Patient actually states "I feel like I can take a deeper breath." Patient's son is in the room stating he feels as though the patient is very anxious. Discussed with patient use of Zyrtec instead of Claritin for her generalized allergies. Discussed use of agfw-wci-kyrfymt tea with honey. Discussed prescription steroids to decrease inflammation. Patient is appreciative. Patient continues to deny chest pain. States she would like to be discharged. Patient's vitals stable, discharged. - Vital Signs Vital signs: Temp Pulse Resp BP Pulse Ox 99.3 F 78 19 125/61 97 01/16/19 18:54 01/16/19 18:54 01/17/19 01:55 01/17/19 01:55 01/17/19 01:55 - Laboratory Result Diagrams: 01/16/19 20:54 01/16/19 20:54 Laboratory results interpreted by me: 01/16/19 20:54 Chloride 109 H BUN 22 H Discharge - Discharge Clinical Impression: Bronchitis Upper respiratory infection Qualifiers: URI type: unspecified viral URI Qualified Code(s): J06.9 - Acute upper respiratory infection, unspecified Condition: Stable Disposition: HOME, SELF-CARE Instructions: Bronchitis ([facility]), Upper Respiratory Illness ([facility]), Viral Syndrome ([facility]) Additional Instructions: as we discussed you have been seen and treated in the emergency department for an upper respiratory infection and bronchitis. Unfortunately these are caused by viruses and do not respond to antibiotics. Please take steroids as prescribed. Please continue to take cvjw-xlh-wyjctwe allergy medicines like Zyrtec. Please also continueUsing honey for your generalized cough. Please stay well-hydrated and immediately return to the emergency room should you have any other concerning symptoms. Prescriptions: Prednisone [Deltasone 20 mg Tablet] 3 tab PO DAILY 5 Days tablet Referrals: ANN MARIE RENTERIA PA-C [Primary Care Provider] - Follow up as needed
[2019-01-17 01:57] VITALS: BP 125/61
--- NOTE | 2019-01-17 07:46 | EKG REPORT ---
SEVERITY:- ABNORMAL ECG - NSR 73 NONSPECIFIC REPOL ABNORMALITY, DIFFUSE LEADS : Confirmed by: Mac Saldaña MD 17-Jan-2019 07:45:42
== END 2019-01-17 02:04 | disposition home or self-care (01) ==
LOC: ER 17:54
DX: J40 Bronchitis, not specified as acute or chronic (principal); J06.9 Acute upper respiratory infection, unspecified; B97.89 Other viral agents as the cause of diseases classified elsewhere; R05 Cough; Z87.891 Personal history of nicotine dependence
CPT/HCPCS: 93005; 99284; 36415; 85025; 80053; 84484; 87804; 71046; 93010; A9270 ×3; J7512

== ENCOUNTER 2020-03-13 14:16 | Emergency (ER) | payer MEDICARE ==
--- NOTE | 2020-03-13 14:30 | ER Document Report ---
ED General - General Chief Complaint: Constipation Stated Complaint: CONSTIPATION Time Seen by Provider: 03/13/20 14:24 Primary Care Provider: ANN MARIE RENTERIA PA-C [Primary Care Provider] - Follow up as needed Mode of Arrival: Medic Information source: Patient TRAVEL OUTSIDE OF THE [place] IN LAST 30 DAYS: No - HPI Onset: Other - over the last several days Onset/Duration: Gradual Quality of pain: Fullness Severity: Moderate Pain Level: 1 Associated symptoms: Other - constipation and fullness Exacerbated by: Denies Relieved by: Denies Similar symptoms previously: No Recently seen / treated by doctor: No Notes: 79 year old female with a history of AFib and HTN here in the ER for constipation for the last several days. The patient denies fevers, chills, sweats, significant abdominal pain. The patient has tried some oral stool softeners and she tried an over the counter enema but she does not think it worked at all. The patient would like some relief today in the ER and that is why she came in. - Related Data Allergies/Adverse Reactions: No Known Drug Allergies Allergy (Verified 03/16/18 20:43) Past Medical History - General Information source: Patient - Social History Smoking Status: Former Smoker Frequency of alcohol use: Occasional Drug Abuse: None Family History: Hypertension Patient has suicidal ideation: No Patient has homicidal ideation: No - Past Medical History Cardiac Medical History: Reports: Hx Atrial Fibrillation, Hx Hypertension Renal/ Medical History: Denies: Hx Peritoneal Dialysis Psychiatric Medical History: Denies: Hx Depression Past Surgical History: Reports: Hx Orthopedic Surgery - R knee replacement. B/L feet sxs. Review of Systems - Review of Systems Constitutional: No symptoms reported EENT: No symptoms reported Cardiovascular: No symptoms reported Respiratory: No symptoms reported Gastrointestinal: Constipation Genitourinary: No symptoms reported Female Genitourinary: No symptoms reported Musculoskeletal: No symptoms reported Skin: No symptoms reported Hematologic/Lymphatic: No symptoms reported Neurological/Psychological: No symptoms reported -: Yes All other systems reviewed and negative Physical Exam - Vital signs Vitals: Temp Pulse Resp BP Pulse Ox 98.4 F 57 L 16 149/51 H 100 03/13/20 14:20 03/13/20 14:20 03/13/20 14:20 03/13/20 14:20 03/13/20 14:20 Course - Re-evaluation Re-evalutation: 03/13/20 16:10 The patient is constipated and her Xray shows a large stool burden all the way to her colon. Patient was given an Enema with good results. Patient felt comfortable going home and using over the counter stool softeners. Patient told to follow up with her PCP. - Vital Signs Vital signs: Temp Pulse Resp BP Pulse Ox 98.4 F 57 L 16 149/51 H 100 03/13/20 14:20 03/13/20 14:20 03/13/20 14:20 03/13/20 14:20 03/13/20 14:20 - Diagnostic Test Radiology reviewed: Image reviewed, Reports reviewed Discharge - Discharge Clinical Impression: Constipation Qualifiers: Constipation type: unspecified constipation type Qualified Code(s): K59.00 - Constipation, unspecified Condition: Stable Disposition: HOME, SELF-CARE Instructions: Constipation ([facility]), Laxative ([facility]) Additional Instructions: Use over the counter Laxatives until you have consistent bowel movements. Follow up with your primary care doctor and tell him/her about your ER visit for constipation. You were given an enema in the ER today. Referrals: ANN MARIE RENTERIA PA-C [Primary Care Provider] - Follow up as needed
[2020-03-13] MEDS ORDERED: MINERAL OIL 30 ML UDCUP PR ONE (14:39)
--- NOTE | 2020-03-13 14:56 | RADIOLOGY REPORT (SQ) ---
EXAM DESCRIPTION: KUB/ABDOMEN (SINGLE VIEW) IMAGES COMPLETED DATE/TIME: 03/13/2020 2:41 pm REASON FOR STUDY: eval for fecal impaction COMPARISON: None. NUMBER OF VIEWS: One view. TECHNIQUE: Supine radiographic image of the abdomen acquired. LIMITATIONS: None. FINDINGS: BOWEL GAS PATTERN: Gas pattern is nonobstructive. There is large amount of stool througho ut the colon most marked in the hepatic flexure, descending colon and sigmoid colon. CALCIFICATIONS: No suspicious calcifications. SOFT TISSUES: No gross mass or suggestion of organomegaly. HARDWARE: None in the abdomen. BONES: No acute fracture. No worrisome bone lesions. OTHER: No other significant finding. IMPRESSION: Constipation. No obstruction. TECHNICAL DOCUMENTATION: JOB ID: [id number] 2010 [employer]- All Rights Reserved Reading location - IP/workstation name: [email or web address]
[2020-03-13 17:27] VITALS: BP 149/59
== END 2020-03-13 17:55 | disposition home or self-care (01) ==
LOC: ER 14:16
DX: K59.00 Constipation, unspecified (principal); I48.91 Unspecified atrial fibrillation; I10 Essential (primary) hypertension; Z96.651 Presence of right artificial knee joint
CPT/HCPCS: 99283; 74018; A9270; J3490

== ENCOUNTER → 2020-09-09 | Outpatient (CLI) | payer MEDICARE ==
--- NOTE | 2020-09-09 14:49 | RADIOLOGY REPORT (SQ) ---
EXAM DESCRIPTION: KUB IMAGES COMPLETED DATE/TIME: 09/09/2020 2:27 pm REASON FOR STUDY: CONSTIPATION R10.12 LEFT UPPER QUADRANT PAIN K59.00 CONSTIPATION, UNSPECIFIED COMPARISON: 03/13/2020 NUMBER OF VIEWS: One view. TECHNIQUE: Supine radiographic image of the abdomen acquired. LIMITATIONS: None. FINDINGS: BOWEL GAS PATTERN: There is a moderate amount of bowel gas in a nonobstructive pattern. T here is not appear to be significant amount of retained stool at this time. CALCIFICATIONS: No suspicious calcifications. SOFT TISSUES: No gross mass or suggestion of organomegaly. HARDWARE: None in the abdomen. BONES: Scoliosis and associated lumbar degenerative changes. OTHER: No other significant finding. IMPRESSION: Nonspecific abdomen. Lumbar degenerative changes. TECHNICAL DOCUMENTATION: JOB ID: [id number] 2010 [employer]- All Rights Reserved Reading location - IP/workstation name: [email or web address]
[2020-09-09 14:58] LABS: HEMATOCRIT 37.2 % (36.0-47.0); HEMOGLOBIN 12.9 g/dL (12.0-15.5); MEAN CORPUSCULAR HEMOGLOBIN 31.5 pg (27.0-33.4); MEAN CORPUSCULAR HGB CONC 34.7 g/dL (32.0-36.0); MEAN CORPUSCULAR VOLUME 91 fl (80-97); RED CELL DISTRIBUTION WIDTH 12.7 % (11.5-14.0); WHITE BLOOD COUNT 8.2 10^3/uL (4.0-10.5)
[2020-09-09 15:29] LABS: ALBUMIN 4.2 g/dL (3.5-5.0); ALKALINE PHOSPHATASE 193 U/L (38-126); ANION GAP 9 (5-19); ASPARTATE AMINO TRANSFERASE 25 U/L (14-36); BILIRUBIN,DIRECT 0.3 mg/dL (0.0-0.4); BILIRUBIN,TOTAL 0.6 mg/dL (0.2-1.3); BLOOD UREA NITROGEN 9 mg/dL (7-20); CALCIUM 9.7 mg/dL (8.4-10.2); CARBON DIOXIDE 23 mmol/L (22-30); CHLORIDE 107 mmol/L (98-107); GLUCOSE 97 mg/dL (75-110); POTASSIUM 3.9 mmol/L (3.6-5.0); TOTAL PROTEIN 6.7 g/dL (6.3-8.2)
[2020-09-09 15:47] LABS: PLATELET COUNT 218 10^3/uL (150-450)
== END ==
LOC: OD 14:05
PROVIDERS: ATTEND Internal Medicine Gastroenterology
DX: K59.00 Constipation, unspecified (principal); R10.12 Left upper quadrant pain
CPT/HCPCS: 36415; 74018; 80053; 84443; 85027

== ENCOUNTER → 2020-09-18 | Outpatient (CLI) | payer MEDICARE ==
--- NOTE | 2020-09-18 12:57 | WOMENS IMAGING REPORT ---
EXAM DESCRIPTION: U/S ABDOMEN TOTAL IMAGES COMPLETED DATE/TIME: 09/18/2020 7:32 am REASON FOR STUDY: R94.5 ABNORMAL RESULTS OF LIVER FUNCTION STUDIES R94.5 ABNORMAL RESULTS OF LIVER FUNCTION STUDIES COMPARISON: None. TECHNIQUE: Dynamic and static grayscale images acquired of the abdomen and recorded on PACS. Additio nal selected color Doppler and spectral images recorded. Note: Study does not meet criteria for complete doppler/duplex scan LIMITATIONS: None. FINDINGS: PANCREAS: No masses. The tail was not seen. LIVER: Small cyst. Normal echotexture. No solid masses. LIVER VASCULATURE: Normal directional flow of the main portal vein and hepatic veins. GALLBLADDER: Gallstones. No wall thickening. No pericholecystic fluid. ULTRASOUND-DETECTED OJEDA'S SIGN: Negative. INTRAHEPATIC DUCTS AND COMMON DUCT: CBD and intrahepatic ducts normal caliber. No filling defects. INFERIOR VENA CAVA: Normal flow. AORTA: No aneurysm proximally. The mid and distal aorta were not seen. RIGHT KIDNEY: Normal size, 12.8 cm. Normal echogenicity. No solid or suspicious masses. No hyd ronephrosis. No calcifications. LEFT KIDNEY: Atrophic, 7.2 cm. Normal echogenicity. No solid or suspicious masses. No hydronep hrosis. No calcifications. SPLEEN: Normal size, 7.4 cm. No solid masses. PERITONEAL AND PLEURAL SPACES: No ascites or effusions. OTHER: No other significant finding. IMPRESSION: Cholelithiasis. No evidence of cholecystitis. Left renal atrophy. Findings as describ ed. TECHNICAL DOCUMENTATION: JOB ID: [id number] 2010 [employer]- All Rights Reserved Reading location - IP/workstation name: [email or web address]
== END ==
LOC: WI 06:49
PROVIDERS: ATTEND Internal Medicine Gastroenterology
DX: K80.20 Calculus of gallbladder without cholecystitis without obstruction (principal); R94.5 Abnormal results of liver function studies
CPT/HCPCS: 76700